=== PATIENT | male | born 1950 | race Caucasian/White ===

== ENCOUNTER 2018-06-23 14:30 | Emergency (ER) | payer MEDICARE, OTHER ==
[2018-06-23 15:00] LABS: ADD MAN DIFF? NO
[2018-06-23 15:03] LABS: BASOPHIL # 0.1 10^3/ul (0.0-0.1); EOSINOPHILS # 0.2 10^3/ul (0.0-0.5); EOSINOPHILS % 3.1 % (0.0-7.0); HEMATOCRIT 40.4 % (42.0-52.0); HEMOGLOBIN 13.2 g/dl (14.0-18.0); LYMPHOCYTES # 1.5 10^3/ul (0.8-2.9); LYMPHOCYTES % 27.9 % (15.0-51.0); MEAN CORPUSCULAR HEMOGLOBIN 30.3 pg (29.0-33.0); MEAN CORPUSCULAR HGB CONC 32.7 g/dl (32.0-37.0); MEAN CORPUSCULAR VOLUME 92.7 fl (82.0-101.0); MEAN PLATELET VOLUME 9.5 fl (7.4-10.4); MONOCYTE # 0.4 10^3/ul (0.3-0.9); MONOCYTES % 8.2 % (0.0-11.0); NEUTROPHIL # 3.1 10^3/ul (1.6-7.5); PLATELET COUNT 275 10^3/UL (140-415); RED BLOOD COUNT 4.36 10^6/ul (4.70-6.10); RED CELL DISTRIBUTION WIDTH 12.3 % (11.5-14.5)
[2018-06-23 15:03] LABS: WHITE BLOOD COUNT 5.2 10^3/ul (4.8-10.8)
[2018-06-23 15:38] LABS: ANION GAP 12 (5-13); BLOOD UREA NITROGEN 17 mg/dl (7-20); CARBON DIOXIDE 29 mmol/L (21-31); CHLORIDE 104 mmol/L (97-110); CREATININE 0.92 mg/dl (0.61-1.24); Estimated GFR > 60 mL/min (>60); GLUCOSE 92 mg/dl (70-220); POTASSIUM 3.6 mmol/L (3.5-5.1); SODIUM 145 mmol/L (135-144)
[2018-06-23 15:50] LABS: TROPONIN-I < 0.012 ng/ml (0.000-0.120)
== END 2018-06-23 19:42 | disposition home or self-care (01) ==
LOC: E/R 14:30
DX: R25.1 Tremor, unspecified (principal); I10 Essential (primary) hypertension; Z95.1 Presence of aortocoronary bypass graft
CPT/HCPCS: 36415; 71045; 80048; 84484; 85025; 93005; 99285-25

== ENCOUNTER 2018-07-12 16:45 | Inpatient (IN) | payer MEDICARE, OTHER ==
[2018-07-12 17:35] LABS: ADD MAN DIFF? NO
[2018-07-12 17:38] LABS: BASOPHIL # 0.1 10^3/ul (0.0-0.1); BASOPHILS % 1.1 % (0.0-2.0); EOSINOPHILS # 0.2 10^3/ul (0.0-0.5); EOSINOPHILS % 4.3 % (0.0-7.0); HEMOGLOBIN 12.8 g/dl (14.0-18.0); LYMPHOCYTES # 1.3 10^3/ul (0.8-2.9); LYMPHOCYTES % 28.6 % (15.0-51.0); MEAN CORPUSCULAR HEMOGLOBIN 29.4 pg (29.0-33.0); MEAN CORPUSCULAR HGB CONC 32.8 g/dl (32.0-37.0); MEAN CORPUSCULAR VOLUME 89.4 fl (82.0-101.0); MEAN PLATELET VOLUME 9.8 fl (7.4-10.4); MONOCYTE # 0.4 10^3/ul (0.3-0.9); NEUTROPHIL # 2.7 10^3/ul (1.6-7.5); NEUTROPHILS % 57.8 % (39.0-77.0); PLATELET COUNT 203 10^3/UL (140-415); RED BLOOD COUNT 4.36 10^6/ul (4.70-6.10); RED CELL DISTRIBUTION WIDTH 12.9 % (11.5-14.5)
[2018-07-12 17:38] LABS: WHITE BLOOD COUNT 4.6 10^3/ul (4.8-10.8)
[2018-07-12] MEDS: hydrALAzine 20 MG INJ IV (17:40)
[2018-07-12 17:57] LABS: ANION GAP 12 (5-13); BLOOD UREA NITROGEN 14 mg/dl (7-20); CALCIUM 9.6 mg/dl (8.4-10.2); CARBON DIOXIDE 25 mmol/L (21-31); CHLORIDE 107 mmol/L (97-110); CREATININE 0.75 mg/dl (0.61-1.24); Estimated GFR > 60 mL/min (>60); GLUCOSE 107 mg/dl (70-220); SODIUM 144 mmol/L (135-144)
[2018-07-12 18:09] LABS: B-TYPE NATRIURETIC PEPTIDE 246 PG/ML (0-125); TROPONIN-I < 0.012 ng/ml (0.000-0.120)
[2018-07-12] MEDS: DIPHENHYDRAMINE 50 MG INJ IV (19:01)
[2018-07-12] MEDS: KETOROLAC 15 MG INJ IV (19:01)
[2018-07-12] MEDS: METOCLOPRAMIDE 10 MG INJ IV (19:01)
[2018-07-12] MEDS: ACETAMINOPHEN 325 MG TAB PO (19:01)
[2018-07-12] MEDS ORDERED: ACETAMINOPHEN 325 MG TAB PO (21:30)
[2018-07-12] MEDS ORDERED: ONDANSETRON 4 MG INJ IV (21:30)
[2018-07-12] MEDS: ASPIRIN 81 MG TAB PO (22:00)
[2018-07-13] MEDS ORDERED: NACL 0.9% 3 ML SYG IV (00:30)
[2018-07-13] MEDS ORDERED: ALBUTEROL/IPRATROPIUM (NEB) 3 ML AMP HHN (00:30)
[2018-07-13] MEDS: hydrALAzine 20 MG INJ IV (01:25)
[2018-07-13] MEDS: HYDROCODONE/APAP (5/325) TAB PO ×3 (02:18→17:21)
[2018-07-13] MEDS: NITROGLYCERIN (SL) 0.4 MG TAB SL ×2 (02:19→02:26)
[2018-07-13] MEDS ORDERED: ACETAMINOPHEN 325 MG TAB PO (02:30)
[2018-07-13] MEDS: ACETAMINOPHEN 325 MG TAB PO (04:41)
[2018-07-13 05:17] LABS: ADD MAN DIFF? NO
[2018-07-13 05:20] LABS: BASOPHIL # 0.1 10^3/ul (0.0-0.1); BASOPHILS % 1.2 % (0.0-2.0); EOSINOPHILS # 0.2 10^3/ul (0.0-0.5); EOSINOPHILS % 3.2 % (0.0-7.0); HEMATOCRIT 36.7 % (42.0-52.0); LYMPHOCYTES # 1.6 10^3/ul (0.8-2.9); MEAN CORPUSCULAR HEMOGLOBIN 29.7 pg (29.0-33.0); MEAN CORPUSCULAR HGB CONC 32.7 g/dl (32.0-37.0); MEAN CORPUSCULAR VOLUME 90.8 fl (82.0-101.0); MEAN PLATELET VOLUME 9.7 fl (7.4-10.4); MONOCYTE # 0.5 10^3/ul (0.3-0.9); MONOCYTES % 9.8 % (0.0-11.0); NEUTROPHIL # 2.7 10^3/ul (1.6-7.5); NEUTROPHILS % 53.4 % (39.0-77.0); PLATELET COUNT 205 10^3/UL (140-415); RED BLOOD COUNT 4.04 10^6/ul (4.70-6.10); RED CELL DISTRIBUTION WIDTH 13.1 % (11.5-14.5)
[2018-07-13 05:31] LABS: ALANINE AMINOTRANSFERASE 16 IU/L (13-69); ALBUMIN 3.7 g/dl (3.3-4.9); ALBUMIN/GLOBULIN RATIO 1.68; ALKALINE PHOSPHATASE 40 IU/L (42-121); ANION GAP 7 (5-13); ASPARTATE AMINO TRANSFERASE 12 IU/L (15-46); BILIRUBIN,INDIRECT 0.5 mg/dl (0-1.1); BILIRUBIN,TOTAL 0.5 mg/dl (0.2-1.3); BLOOD UREA NITROGEN 14 mg/dl (7-20); CALCIUM 9.4 mg/dl (8.4-10.2); CARBON DIOXIDE 32 mmol/L (21-31); CHLORIDE 105 mmol/L (97-110); CHOL/HDL RATIO 2.7 RATIO; CHOLESTEROL 127 mg/dl (100-200); CREATINE KINASE 35 IU/L (23-200); Estimated GFR > 60 mL/min (>60); GLUCOSE 91 mg/dl (70-220); HDL CHOLESTEROL 46 mg/dl (30-78); LDL CHOLESTEROL,CALCULATED 58 mg/dl; POTASSIUM 3.3 mmol/L (3.5-5.1); SODIUM 144 mmol/L (135-144); TOTAL PROTEIN 5.9 g/dl (6.1-8.1); TRIGLYCERIDES 117 mg/dl (0-149)
[2018-07-13 05:42] LABS: CK INDEX 0.6; CK-MB < 0.22 ng/ml (0.0-2.4); TROPONIN-I < 0.012 ng/ml (0.000-0.120)
[2018-07-13] MEDS: POTASSIUM CHLORIDE (SR) 20 MEQ TAB PO (06:52)
[2018-07-13] MEDS ORDERED: HEPARIN 5,000 UNIT/0.5 ML VIAL ×2 (08:27→20:18)
[2018-07-13] MEDS: ONDANSETRON 4 MG INJ IV ×2 (08:31→17:21)
[2018-07-13] MEDS: HYDROCHLOROTHIAZIDE 25 MG TAB PO (08:33)
[2018-07-13] MEDS: RANOLAZINE (SR) 500 MG TAB PO ×2 (08:33→21:00)
[2018-07-13] MEDS: AMLODIPINE 10 MG TAB PO (08:34)
[2018-07-13] MEDS: ISOSORBIDE MONONITRATE(SR)30 MG TAB PO (08:34)
[2018-07-13] MEDS: FLUOXETINE 20 MG CAP PO (08:34)
[2018-07-13] MEDS: CLOPIDOGREL 75 MG TAB PO (08:34)
[2018-07-13] MEDS: FAMOTIDINE 20 MG TAB PO (08:35)
[2018-07-13] MEDS: LOSARTAN 50 MG TAB PO (08:35)
[2018-07-13] MEDS: DIVALPROEX (EC) 500 MG TAB PO ×2 (08:35→21:00)
[2018-07-13] MEDS: GABAPENTIN 300 MG CAP PO ×2 (08:35→21:00)
[2018-07-13] MEDS: FENOFIBRATE 145 MG TAB PO (08:35)
[2018-07-13] MEDS: HEPARIN 5,000 UNIT/1 ML VIAL SC ×2 (08:41→20:34)
[2018-07-13] MEDS ORDERED: FENOFIBRIC ACID 135 MG PO (09:00)
[2018-07-13] MEDS ORDERED: NON-FORMULARY/PATIENT OWN MED (Losartan-Hydrochlorothiazide (Losartan-HCTZ) 1 TAB) PO (09:00)
[2018-07-13] MEDS: BUPROPION (SR) 150 MG TAB PO (10:31)
[2018-07-13 10:52] LABS: CREATINE KINASE 31 IU/L (23-200)
[2018-07-13 11:05] LABS: CK INDEX 0.7; CK-MB 0.23 ng/ml (0.0-2.4)
[2018-07-13] MEDS: traZODone 100 MG TAB PO (21:00)
[2018-07-13] MEDS: ATORVASTATIN 20 MG TAB PO (21:00)
[2018-07-13] MEDS: METOCLOPRAMIDE 10 MG INJ IV (22:16)
[2018-07-14] MEDS: ONDANSETRON INJ 8 MG in DEXTROSE 5% 50 ML IV ×3 (01:43→14:34)
[2018-07-14] MEDS: HYDROmorphONE 0.5 MG/0.5 ML SYG IV (03:42)
[2018-07-14] MEDS: HYDROCODONE/APAP (5/325) TAB PO ×2 (05:35→10:44)
[2018-07-14] MEDS: MECLIZINE 25 MG TAB PO ×2 (05:35→15:39)
[2018-07-14] MEDS: hydrALAzine 20 MG INJ IV ×2 (05:41→11:18)
[2018-07-14 06:08] LABS: ADD MAN DIFF? NO
[2018-07-14] MEDS: NITROGLYCERIN (SL) 0.4 MG TAB SL ×2 (06:13→06:53)
[2018-07-14 06:16] LABS: WHITE BLOOD COUNT 5.7 10^3/ul (4.8-10.8)
[2018-07-14 06:16] LABS: BASOPHILS % 0.5 % (0.0-2.0); EOSINOPHILS % 0.2 % (0.0-7.0); HEMATOCRIT 38.5 % (42.0-52.0); HEMOGLOBIN 12.6 g/dl (14.0-18.0); LYMPHOCYTES # 1.2 10^3/ul (0.8-2.9); LYMPHOCYTES % 21.1 % (15.0-51.0); MEAN CORPUSCULAR HEMOGLOBIN 29.9 pg (29.0-33.0); MEAN CORPUSCULAR HGB CONC 32.7 g/dl (32.0-37.0); MEAN CORPUSCULAR VOLUME 91.4 fl (82.0-101.0); MEAN PLATELET VOLUME 9.7 fl (7.4-10.4); MONOCYTE # 0.4 10^3/ul (0.3-0.9); MONOCYTES % 7.1 % (0.0-11.0); NEUTROPHIL # 4.1 10^3/ul (1.6-7.5); NEUTROPHILS % 70.8 % (39.0-77.0); PLATELET COUNT 219 10^3/UL (140-415); RED BLOOD COUNT 4.21 10^6/ul (4.70-6.10); RED CELL DISTRIBUTION WIDTH 13.1 % (11.5-14.5)
[2018-07-14 07:11] LABS: ANION GAP 11 (5-13); BLOOD UREA NITROGEN 16 mg/dl (7-20); CALCIUM 9.1 mg/dl (8.4-10.2); CARBON DIOXIDE 27 mmol/L (21-31); CHLORIDE 107 mmol/L (97-110); CREATININE 1.02 mg/dl (0.61-1.24); Estimated GFR > 60 mL/min (>60); GLUCOSE 99 mg/dl (70-220); MAGNESIUM 2.1 mg/dl (1.7-2.5); PHOSPHORUS 3.7 mg/dl (2.5-4.9); SODIUM 145 mmol/L (135-144)
[2018-07-14 07:39] LABS: AMPHETAMINE/METHAMPHETAMINE Negative (NEGATIVE); BARBITURATES Negative (NEGATIVE); BENZODIAZEPINES Negative (NEGATIVE); CANNABINOIDS Negative (NEGATIVE); COCAINE Negative (NEGATIVE)
[2018-07-14 07:40] LABS: POTASSIUM 3.2 mmol/L (3.5-5.1)
[2018-07-14 07:43] LABS: OPIATES Positive (NEGATIVE)
[2018-07-14] MEDS: DIVALPROEX (EC) 500 MG TAB PO ×2 (09:00→20:04)
[2018-07-14] MEDS: GABAPENTIN 300 MG CAP PO ×2 (09:00→20:04)
[2018-07-14] MEDS: RANOLAZINE (SR) 500 MG TAB PO ×2 (09:00→20:04)
[2018-07-14] MEDS: METOCLOPRAMIDE 10 MG INJ IV ×3 (09:22→20:02)
[2018-07-14] MEDS: ONDANSETRON 4 MG INJ IV (09:22)
[2018-07-14] MEDS: POTASSIUM CHLORIDE (SR) 20 MEQ TAB PO ×2 (10:12→10:43)
[2018-07-14] MEDS: SOD CHLORIDE 0.45% 1,000 ML IV ×2 (10:36→20:08)
[2018-07-14] MEDS ORDERED: HEPARIN 5,000 UNIT/0.5 ML VIAL ×2 (10:41→19:55)
[2018-07-14] MEDS: TRIMETHOBENZAMIDE 100 MG/ML VIAL IM ×2 (10:56→17:38)
[2018-07-14] MEDS: HEPARIN 5,000 UNIT/1 ML VIAL SC ×2 (10:58→21:10)
[2018-07-14] MEDS: morphine 2 MG INJ IV ×2 (12:10→17:00)
[2018-07-14] MEDS: HYDROCHLOROTHIAZIDE 25 MG TAB PO (12:58)
[2018-07-14] MEDS: CLOPIDOGREL 75 MG TAB PO (12:58)
[2018-07-14] MEDS: ISOSORBIDE MONONITRATE(SR)30 MG TAB PO (12:58)
[2018-07-14] MEDS: LOSARTAN 50 MG TAB PO (12:59)
[2018-07-14] MEDS: AMLODIPINE 10 MG TAB PO (12:59)
[2018-07-14] MEDS: FENOFIBRATE 145 MG TAB PO (12:59)
[2018-07-14] MEDS: ACET/BUTAL/CAFF TAB PO (13:00)
[2018-07-14] MEDS ORDERED: ONDANSETRON 4 MG INJ IV (14:00)
[2018-07-14] MEDS: ENALAPRILAT 1.25 MG INJ IV (15:39)
[2018-07-14] MEDS: FAMOTIDINE 20 MG TAB PO (17:41)
[2018-07-14] MEDS: FLUOXETINE 20 MG CAP PO (17:41)
[2018-07-14] MEDS: BUPROPION (SR) 150 MG TAB PO (17:41)
[2018-07-14] MEDS: traZODone 100 MG TAB PO (20:04)
[2018-07-14] MEDS: ATORVASTATIN 20 MG TAB PO (20:04)
[2018-07-15] MEDS: SOD CHLORIDE 0.45% 1,000 ML IV ×4 (05:21→22:05)
[2018-07-15] MEDS: MECLIZINE 25 MG TAB PO (05:52)
[2018-07-15 06:19] LABS: ADD MAN DIFF? NO
[2018-07-15 06:31] LABS: BASOPHILS % 0.7 % (0.0-2.0); EOSINOPHILS # 0.1 10^3/ul (0.0-0.5); HEMOGLOBIN 11.9 g/dl (14.0-18.0); LYMPHOCYTES # 2.4 10^3/ul (0.8-2.9); LYMPHOCYTES % 38.7 % (15.0-51.0); MEAN CORPUSCULAR HEMOGLOBIN 29.7 pg (29.0-33.0); MEAN CORPUSCULAR HGB CONC 32.2 g/dl (32.0-37.0); MEAN CORPUSCULAR VOLUME 92.3 fl (82.0-101.0); MEAN PLATELET VOLUME 9.8 fl (7.4-10.4); MONOCYTE # 0.7 10^3/ul (0.3-0.9); MONOCYTES % 11.1 % (0.0-11.0); NEUTROPHIL # 2.9 10^3/ul (1.6-7.5); NEUTROPHILS % 48.2 % (39.0-77.0); PLATELET COUNT 220 10^3/UL (140-415); RED BLOOD COUNT 4.01 10^6/ul (4.70-6.10); RED CELL DISTRIBUTION WIDTH 13.5 % (11.5-14.5)
[2018-07-15 06:31] LABS: WHITE BLOOD COUNT 6.1 10^3/ul (4.8-10.8)
[2018-07-15 06:50] LABS: ANION GAP 12 (5-13); BLOOD UREA NITROGEN 16 mg/dl (7-20); CALCIUM 8.8 mg/dl (8.4-10.2); CARBON DIOXIDE 28 mmol/L (21-31); CHLORIDE 105 mmol/L (97-110); Estimated GFR > 60 mL/min (>60); GLUCOSE 93 mg/dl (70-220); POTASSIUM 3.2 mmol/L (3.5-5.1); SODIUM 145 mmol/L (135-144)
[2018-07-15 07:08] LABS: PHOSPHORUS 3.3 mg/dl (2.5-4.9)
[2018-07-15] MEDS ORDERED: HEPARIN 5,000 UNIT/0.5 ML VIAL ×2 (08:16→19:51)
[2018-07-15] MEDS: DIVALPROEX (EC) 500 MG TAB PO ×2 (08:23→20:11)
[2018-07-15] MEDS: BUPROPION (SR) 150 MG TAB PO (08:23)
[2018-07-15] MEDS: LOSARTAN 50 MG TAB PO (08:24)
[2018-07-15] MEDS: CLOPIDOGREL 75 MG TAB PO (08:24)
[2018-07-15] MEDS: HYDROCHLOROTHIAZIDE 25 MG TAB PO (08:24)
[2018-07-15] MEDS: FLUOXETINE 20 MG CAP PO (08:24)
[2018-07-15] MEDS: GABAPENTIN 300 MG CAP PO ×2 (08:24→20:11)
[2018-07-15] MEDS: RANOLAZINE (SR) 500 MG TAB PO ×2 (08:24→20:11)
[2018-07-15] MEDS: AMLODIPINE 10 MG TAB PO (08:24)
[2018-07-15] MEDS: ISOSORBIDE MONONITRATE(SR)30 MG TAB PO (08:24)
[2018-07-15] MEDS: FAMOTIDINE 20 MG TAB PO (08:24)
[2018-07-15] MEDS: morphine 2 MG INJ IV ×2 (08:25→16:51)
[2018-07-15] MEDS: FENOFIBRATE 145 MG TAB PO (08:25)
[2018-07-15] MEDS: HEPARIN 5,000 UNIT/1 ML VIAL SC ×2 (08:33→21:44)
[2018-07-15] MEDS: POTASSIUM CHLORIDE (SR) 20 MEQ TAB PO (09:56)
[2018-07-15] MEDS: ACET/BUTAL/CAFF TAB PO (09:57)
[2018-07-15] MEDS: hydrALAzine 20 MG INJ IV (20:10)
[2018-07-15] MEDS: traZODone 100 MG TAB PO (20:11)
[2018-07-15] MEDS: HYDROCODONE/APAP (5/325) TAB PO (20:11)
[2018-07-15] MEDS: ATORVASTATIN 20 MG TAB PO (20:11)
[2018-07-16 05:39] LABS: ADD MAN DIFF? NO
[2018-07-16 05:41] LABS: WHITE BLOOD COUNT 4.3 10^3/ul (4.8-10.8)
[2018-07-16 05:41] LABS: BASOPHIL # 0.1 10^3/ul (0.0-0.1); BASOPHILS % 1.4 % (0.0-2.0); EOSINOPHILS # 0.2 10^3/ul (0.0-0.5); EOSINOPHILS % 4.5 % (0.0-7.0); HEMATOCRIT 39.2 % (42.0-52.0); HEMOGLOBIN 12.6 g/dl (14.0-18.0); LYMPHOCYTES % 46.8 % (15.0-51.0); MEAN CORPUSCULAR HEMOGLOBIN 29.5 pg (29.0-33.0); MEAN CORPUSCULAR HGB CONC 32.1 g/dl (32.0-37.0); MEAN CORPUSCULAR VOLUME 91.8 fl (82.0-101.0); MEAN PLATELET VOLUME 9.2 fl (7.4-10.4); MONOCYTE # 0.5 10^3/ul (0.3-0.9); MONOCYTES % 11.5 % (0.0-11.0); NEUTROPHIL # 1.5 10^3/ul (1.6-7.5); NEUTROPHILS % 35.3 % (39.0-77.0); PLATELET COUNT 222 10^3/UL (140-415); RED BLOOD COUNT 4.27 10^6/ul (4.70-6.10); RED CELL DISTRIBUTION WIDTH 13.4 % (11.5-14.5)
[2018-07-16 06:13] LABS: MAGNESIUM 2.1 mg/dl (1.7-2.5)
[2018-07-16 06:13] LABS: PHOSPHORUS 2.9 mg/dl (2.5-4.9)
[2018-07-16 06:22] LABS: ANION GAP 10 (5-13); BLOOD UREA NITROGEN 9 mg/dl (7-20); CALCIUM 9.1 mg/dl (8.4-10.2); CARBON DIOXIDE 30 mmol/L (21-31); CHLORIDE 107 mmol/L (97-110); CREATININE 0.71 mg/dl (0.61-1.24); Estimated GFR > 60 mL/min (>60); GLUCOSE 94 mg/dl (70-220); SODIUM 147 mmol/L (135-144)
[2018-07-16] MEDS ORDERED: HEPARIN 5,000 UNIT/0.5 ML VIAL (07:55)
[2018-07-16] MEDS: ISOSORBIDE MONONITRATE(SR)30 MG TAB PO (08:36)
[2018-07-16] MEDS: FENOFIBRATE 145 MG TAB PO (08:36)
[2018-07-16] MEDS: RANOLAZINE (SR) 500 MG TAB PO (08:36)
[2018-07-16] MEDS: FAMOTIDINE 20 MG TAB PO (08:37)
[2018-07-16] MEDS: BUPROPION (SR) 150 MG TAB PO (08:37)
[2018-07-16] MEDS: DIVALPROEX (EC) 500 MG TAB PO (08:37)
[2018-07-16] MEDS: GABAPENTIN 300 MG CAP PO (08:37)
[2018-07-16] MEDS: FLUOXETINE 20 MG CAP PO (08:37)
[2018-07-16] MEDS: CLOPIDOGREL 75 MG TAB PO (08:38)
[2018-07-16] MEDS: AMLODIPINE 10 MG TAB PO (08:38)
[2018-07-16] MEDS: HYDROCHLOROTHIAZIDE 25 MG TAB PO (08:38)
[2018-07-16] MEDS: LOSARTAN 50 MG TAB PO (08:38)
[2018-07-16] MEDS: HEPARIN 5,000 UNIT/1 ML VIAL SC (08:52)
[2018-07-16] MEDS: HYDROCODONE/APAP (5/325) TAB PO (09:58)
[2018-07-16] MEDS: SOD CHLORIDE 0.45% 1,000 ML IV (10:30)
[2018-07-16] MEDS: POTASSIUM CHLORIDE 20 MEQ POWDER FOR ORAL SOLN PO (11:38)
[2018-07-18 23:17] LABS: ALDOSTERONE 8 ng/dL
== END 2018-07-16 13:00 | disposition home or self-care (01) | DRG 103 ==
LOC: 6WM 21:18 → E/R 16:45
DX: G43.109 Migraine with aura, not intractable, without status migrainosus (principal); I16.0 Hypertensive urgency; I11.0 Hypertensive heart disease with heart failure; I50.9 Heart failure, unspecified; I25.10 Atherosclerotic heart disease of native coronary artery without angina pectoris; E78.5 Hyperlipidemia, unspecified; E11.9 Type 2 diabetes mellitus without complications; G40.909 Epilepsy, unspecified, not intractable, without status epilepticus; J44.9 Chronic obstructive pulmonary disease, unspecified; G47.33 Obstructive sleep apnea (adult) (pediatric); Z95.1 Presence of aortocoronary bypass graft; Z88.0 Allergy status to penicillin; T46.5X6A Underdosing of other antihypertensive drugs, initial encounter; Z91.128 Patient's intentional underdosing of medication regimen for other reason
CPT/HCPCS: 36415; 70450; 71045; 80048; 80053; 80061; 80307; 82088; 82164; 82550; 82553; 83735; 83880; 84100; 84244; 84439; 84443; 84484; 85025; 87081; 93005; 94660; 96374; 96375; 97116; 97161; 97530; 99285-25

== ENCOUNTER 2018-07-18 19:23 | Observation (INO) | payer MEDICARE, OTHER ==
[2018-07-18] MEDS: LABETALOL HCL 20MG INJ IV ×2 (20:03→21:02)
[2018-07-18 20:24] LABS: ADD MAN DIFF? NO
[2018-07-18] MEDS: NIFEdipine (XL) 30 MG TAB PO (20:26)
[2018-07-18 20:30] LABS: BASOPHILS % 0.8 % (0.0-2.0); EOSINOPHILS # 0.2 10^3/ul (0.0-0.5); EOSINOPHILS % 3.7 % (0.0-7.0); HEMOGLOBIN 13.8 g/dl (14.0-18.0); LYMPHOCYTES # 1.9 10^3/ul (0.8-2.9); LYMPHOCYTES % 38.5 % (15.0-51.0); MEAN CORPUSCULAR HEMOGLOBIN 29.9 pg (29.0-33.0); MEAN CORPUSCULAR HGB CONC 33.7 g/dl (32.0-37.0); MEAN CORPUSCULAR VOLUME 88.7 fl (82.0-101.0); MEAN PLATELET VOLUME 9.4 fl (7.4-10.4); MONOCYTE # 0.6 10^3/ul (0.3-0.9); MONOCYTES % 12.6 % (0.0-11.0); NEUTROPHIL # 2.1 10^3/ul (1.6-7.5); NEUTROPHILS % 43.6 % (39.0-77.0); PLATELET COUNT 268 10^3/UL (140-415); RED BLOOD COUNT 4.62 10^6/ul (4.70-6.10); RED CELL DISTRIBUTION WIDTH 13.1 % (11.5-14.5)
[2018-07-18 20:30] LABS: WHITE BLOOD COUNT 4.8 10^3/ul (4.8-10.8)
[2018-07-18 20:45] LABS: ANION GAP 10 (5-13); BLOOD UREA NITROGEN 14 mg/dl (7-20); CALCIUM 11.2 mg/dl (8.4-10.2); CARBON DIOXIDE 33 mmol/L (21-31); CHLORIDE 97 mmol/L (97-110); CREATININE 0.81 mg/dl (0.61-1.24); Estimated GFR > 60 mL/min (>60); GLUCOSE 97 mg/dl (70-220); SODIUM 140 mmol/L (135-144)
[2018-07-18 20:49] LABS: POTASSIUM 2.6 mmol/L (3.5-5.1)
[2018-07-18 21:29] LABS: MAGNESIUM 1.9 mg/dl (1.7-2.5)
[2018-07-18] MEDS ORDERED: BISACODYL (EC) 5 MG TAB PO (21:30)
[2018-07-18] MEDS ORDERED: NACL 0.9% 3 ML SYG IV (21:30)
[2018-07-18] MEDS ORDERED: ONDANSETRON 4 MG INJ IV (21:30)
[2018-07-18] MEDS ORDERED: ACETAMINOPHEN 325 MG TAB PO (21:30)
[2018-07-18] MEDS ORDERED: DOCUSATE SODIUM 100 MG CAP PO (21:30)
[2018-07-18 22:04] LABS: ETHANOL < 10.0 mg/dl (0-0)
[2018-07-18] MEDS: POTASSIUM CHLORIDE 100 ML IVPB (22:13)
[2018-07-18] MEDS: MAGNESIUM SULFATE 1 GM/D5W 100 ML IVPB (22:33)
[2018-07-18] MEDS: ASA/ACETAMINOPHEN/CAFF TAB PO (22:49)
[2018-07-19] MEDS: hydrALAzine 20 MG INJ IV (00:27)
[2018-07-19] MEDS: POTASSIUM CHLORIDE 100 ML IVPB ×2 (01:15→03:45)
[2018-07-19] MEDS: morphine 2 MG INJ IV (01:25)
[2018-07-19] MEDS: traZODone 100 MG TAB PO (03:45)
[2018-07-19] MEDS ORDERED: ALBUMIN HUMAN 25% 100 ML IV (05:00)
[2018-07-19 05:37] LABS: ADD MAN DIFF? NO
[2018-07-19 05:40] LABS: BASOPHIL # 0.1 10^3/ul (0.0-0.1); BASOPHILS % 1.2 % (0.0-2.0); EOSINOPHILS # 0.3 10^3/ul (0.0-0.5); HEMOGLOBIN 12.7 g/dl (14.0-18.0); LYMPHOCYTES # 1.8 10^3/ul (0.8-2.9); LYMPHOCYTES % 36.5 % (15.0-51.0); MEAN CORPUSCULAR HGB CONC 33.4 g/dl (32.0-37.0); MEAN CORPUSCULAR VOLUME 89.8 fl (82.0-101.0); MEAN PLATELET VOLUME 9.1 fl (7.4-10.4); MONOCYTE # 0.7 10^3/ul (0.3-0.9); MONOCYTES % 13.5 % (0.0-11.0); NEUTROPHIL # 2.2 10^3/ul (1.6-7.5); NEUTROPHILS % 43.4 % (39.0-77.0); PLATELET COUNT 223 10^3/UL (140-415); RED BLOOD COUNT 4.23 10^6/ul (4.70-6.10); RED CELL DISTRIBUTION WIDTH 13.3 % (11.5-14.5)
[2018-07-19 06:19] LABS: ALANINE AMINOTRANSFERASE 17 IU/L (13-69); ALBUMIN 3.6 g/dl (3.3-4.9); ALBUMIN/GLOBULIN RATIO 1.63; ALKALINE PHOSPHATASE 38 IU/L (42-121); ANION GAP 8 (5-13); ASPARTATE AMINO TRANSFERASE 16 IU/L (15-46); BILIRUBIN,INDIRECT 0.4 mg/dl (0-1.1); BILIRUBIN,TOTAL 0.4 mg/dl (0.2-1.3); BLOOD UREA NITROGEN 12 mg/dl (7-20); CALCIUM 10.2 mg/dl (8.4-10.2); CARBON DIOXIDE 32 mmol/L (21-31); CHLORIDE 102 mmol/L (97-110); CREATININE 0.98 mg/dl (0.61-1.24); Estimated GFR > 60 mL/min (>60); GLUCOSE 110 mg/dl (70-220); SODIUM 142 mmol/L (135-144); TOTAL PROTEIN 5.8 g/dl (6.1-8.1)
[2018-07-19 06:33] LABS: FREE T3 3.63 pg/ml (2.77-5.27)
[2018-07-19 06:36] LABS: POTASSIUM 2.9 mmol/L (3.5-5.1)
[2018-07-19] MEDS ORDERED: DIPHENHYDRAMINE 50 MG CAP PO (07:00)
[2018-07-19] MEDS: FAMOTIDINE 20 MG TAB PO (08:29)
[2018-07-19] MEDS: AMLODIPINE 10 MG TAB PO (08:29)
[2018-07-19] MEDS: ISOSORBIDE MONONITRATE(SR)30 MG TAB PO (08:29)
[2018-07-19] MEDS: CLOPIDOGREL 75 MG TAB PO (08:29)
[2018-07-19] MEDS: BUPROPION (SR) 150 MG TAB PO (08:29)
[2018-07-19] MEDS: DIVALPROEX (EC) 500 MG TAB PO ×2 (08:29→20:31)
[2018-07-19] MEDS: RANOLAZINE (SR) 500 MG TAB PO ×2 (08:30→20:31)
[2018-07-19] MEDS: POTASSIUM CHLORIDE 20 MEQ POWDER FOR ORAL SOLN PO ×2 (09:32→15:32)
[2018-07-19] MEDS: LOSARTAN 50 MG TAB PO (09:32)
[2018-07-19] MEDS: ACET/BUTAL/CAFF TAB PO (09:39)
[2018-07-19] MEDS: ASA/ACETAMINOPHEN/CAFF TAB PO ×2 (12:22→18:19)
[2018-07-19 15:14] LABS: ANION GAP 9 (5-13); BLOOD UREA NITROGEN 11 mg/dl (7-20); CALCIUM 10.1 mg/dl (8.4-10.2); CARBON DIOXIDE 31 mmol/L (21-31); CHLORIDE 101 mmol/L (97-110); CREATININE 0.78 mg/dl (0.61-1.24); Estimated GFR > 60 mL/min (>60); GLUCOSE 97 mg/dl (70-220); POTASSIUM 3.2 mmol/L (3.5-5.1); SODIUM 141 mmol/L (135-144)
[2018-07-19 15:26] LABS: TROPONIN-I < 0.012 ng/ml (0.000-0.120)
[2018-07-19] MEDS: HYDROCHLOROTHIAZIDE 25 MG TAB PO (16:11)
[2018-07-19] MEDS: ATORVASTATIN 20 MG TAB PO (20:31)
[2018-07-19] MEDS: traZODone 50 MG TAB PO (20:31)
[2018-07-20] MEDS: ASA/ACETAMINOPHEN/CAFF TAB PO (03:54)
[2018-07-20] MEDS: hydrALAzine 20 MG INJ IV (03:54)
[2018-07-20 08:38] LABS: ADD MAN DIFF? NO
[2018-07-20 08:41] LABS: WHITE BLOOD COUNT 4.8 10^3/ul (4.8-10.8)
[2018-07-20 08:41] LABS: BASOPHIL # 0.1 10^3/ul (0.0-0.1); EOSINOPHILS # 0.3 10^3/ul (0.0-0.5); EOSINOPHILS % 6.2 % (0.0-7.0); HEMOGLOBIN 14.2 g/dl (14.0-18.0); LYMPHOCYTES # 1.6 10^3/ul (0.8-2.9); LYMPHOCYTES % 34.1 % (15.0-51.0); MEAN CORPUSCULAR HEMOGLOBIN 29.5 pg (29.0-33.0); MEAN CORPUSCULAR HGB CONC 32.3 g/dl (32.0-37.0); MEAN CORPUSCULAR VOLUME 91.5 fl (82.0-101.0); MEAN PLATELET VOLUME 9.4 fl (7.4-10.4); MONOCYTE # 0.5 10^3/ul (0.3-0.9); MONOCYTES % 10.6 % (0.0-11.0); NEUTROPHIL # 2.3 10^3/ul (1.6-7.5); NEUTROPHILS % 47.5 % (39.0-77.0); PLATELET COUNT 259 10^3/UL (140-415); RED BLOOD COUNT 4.81 10^6/ul (4.70-6.10); RED CELL DISTRIBUTION WIDTH 13.4 % (11.5-14.5)
[2018-07-20 09:07] LABS: ALANINE AMINOTRANSFERASE 21 IU/L (13-69); ALBUMIN 4.2 g/dl (3.3-4.9); ALBUMIN/GLOBULIN RATIO 1.68; ALKALINE PHOSPHATASE 44 IU/L (42-121); ANION GAP 11 (5-13); ASPARTATE AMINO TRANSFERASE 13 IU/L (15-46); BILIRUBIN,INDIRECT 0.4 mg/dl (0-1.1); BILIRUBIN,TOTAL 0.4 mg/dl (0.2-1.3); BLOOD UREA NITROGEN 11 mg/dl (7-20); CALCIUM 10.2 mg/dl (8.4-10.2); CARBON DIOXIDE 31 mmol/L (21-31); CHLORIDE 102 mmol/L (97-110); CREATININE 0.76 mg/dl (0.61-1.24); Estimated GFR > 60 mL/min (>60); GLUCOSE 104 mg/dl (70-220); MAGNESIUM 1.9 mg/dl (1.7-2.5); PHOSPHORUS 3.2 mg/dl (2.5-4.9); SODIUM 144 mmol/L (135-144); TOTAL PROTEIN 6.7 g/dl (6.1-8.1)
[2018-07-20] MEDS: LABETALOL 100 MG TAB PO (09:07)
[2018-07-20] MEDS: LOSARTAN 50 MG TAB PO (09:07)
[2018-07-20] MEDS: RANOLAZINE (SR) 500 MG TAB PO (09:08)
[2018-07-20] MEDS: FAMOTIDINE 20 MG TAB PO (09:08)
[2018-07-20] MEDS: ISOSORBIDE MONONITRATE(SR)30 MG TAB PO (09:08)
[2018-07-20] MEDS: HYDROCHLOROTHIAZIDE 25 MG TAB PO (09:08)
[2018-07-20] MEDS: DIVALPROEX (EC) 500 MG TAB PO (09:09)
[2018-07-20] MEDS: AMLODIPINE 10 MG TAB PO (09:09)
[2018-07-20] MEDS: CLOPIDOGREL 75 MG TAB PO (09:09)
[2018-07-20] MEDS: BUPROPION (SR) 150 MG TAB PO (09:09)
[2018-07-20] MEDS: POTASSIUM CHLORIDE 20 MEQ POWDER FOR ORAL SOLN PO (12:41)
[2018-07-21 10:57] LABS: ALDOSTERONE 40 ng/dL
[2018-07-21 17:01] LABS: RENIN, PLASMA 0.07 ng/mL/h (0.25-5.82)
== END 2018-07-20 16:46 | disposition home or self-care (01) ==
LOC: E/R 19:23 → 6WM 21:08
DX: I10 Essential (primary) hypertension (principal); G43.909 Migraine, unspecified, not intractable, without status migrainosus; I25.10 Atherosclerotic heart disease of native coronary artery without angina pectoris; Z95.1 Presence of aortocoronary bypass graft; E78.5 Hyperlipidemia, unspecified; G47.33 Obstructive sleep apnea (adult) (pediatric); Z88.0 Allergy status to penicillin
CPT/HCPCS: 70450; 80048; 80053; 80307; 82088; 83735; 84100; 84244; 84439; 84443; 84481; 84484; 85025; 93005; 96374; 96375; 99291-25; G0378